=== PATIENT | male | born 1990 | race Caucasian/White ===

== ENCOUNTER 2016-09-19 09:53 | Outpatient (CLI) | payer BC ==
--- NOTE | 2016-09-19 11:23 | DIAGNOSTIC IMAGING REPORT ---
PROCEDURE: US ABDOMEN ULTRASOUND-COMPLETE INDICATION: ABDOMEN PAIN;SCROTUM PAIN TECHNIQUE: Mack scale and color Doppler sonographic images of the abdomen were obtained without comparison. COMPARISON: None. FINDINGS: The liver is normal in size, contour, and echotexture. No mass or intrahepatic biliary dilatation. The gallbladder is normal without stones or sludge. The wall is normal thickness measuring 1.8 mm No pericholecystic fluid or West sign. The extrahepatic common duct is normal measuring 5.3 mm The visualized pancreas is normal without ductal dilatation or peripancreatic fluid collection. The abdominal aorta is normal in its course and caliber. The retrohepatic inferior vena cava is patent. There is appropriate hepatopetal flow in the portal vein. The right kidney measures 10.3 cm in length. The left kidney measures 13.3 cm in length. Both kidneys demonstrate normal morphology and cortical thickness without hydronephrosis, cyst, solid mass, or shadowing calculus. Color Doppler imaging demonstrates normal blood flow in each kidney. The spleen is normal in size measuring 10.2 cm in length. Scattered calcifications were noted in the spleen. There is no perihepatic or perisplenic ascites. Area of pain was scanned there is no evidence of hernia or mass in this area. IMPRESSION: 1. Normal abdominal ultrasound.
--- NOTE | 2016-09-19 11:31 | DIAGNOSTIC IMAGING REPORT ---
PROCEDURE: US SCROTUM/TESTICLE INDICATION: SCROTAL PAIN TECHNIQUE: Mack scale and color Doppler sonographic images through the scrotum were obtained. COMPARISON: Abdominal ultrasound 09/19/2016 FINDINGS: The right testicle measures 4.7 x 2 x 2.6 cm and the left measures 4.5 x 2.5 x 2.7 cm Both testicles demonstrate homogeneous echotexture without solid mass, cyst, or numerous microcalcifications. Color Doppler imaging demonstrates normal and symmetric arterial and venous testicular flow. No suspicious hyperemia. The left epididymis demonstrates a slight increase in the vascularity compared to the right.. Trace of hydroceles are seen bilaterally. No significant scrotal skin thickening. IMPRESSION: 1. Epididymitis on the left.
== END 2016-09-19 23:00 ==
LOC: US SRH 09:53
DX: R10.9 Unspecified abdominal pain (principal); N45.1 Epididymitis